=== PATIENT | male | born 1940 | race Caucasian/White ===

== ENCOUNTER 2019-08-31 04:50 | Emergency (ER) | payer OTHER ==
--- NOTE | 2019-08-31 05:24 | EDM.PDOC ---
ED HPI GENERAL MEDICAL PROBLEM - General Chief Complaint: General Stated Complaint: SOB Time Seen by Provider: 08/31/19 05:24 Source of Information: Reports: Patient, Old Records History Limitations: Reports: No Limitations - History of Present Illness INITIAL COMMENTS - FREE TEXT/NARRATIVE: Abisai was discharged from [facility] this past Saturday. States things were going well with no major issues until awakening this morning. Significant dizziness/vertigo has been experienced since then. Seemingly worsens with any position change or motion of the head. He denies any recent falls, no head trauma, with mild fluid concerns as he states he is always been on the dry side. Due to the medications he is thirsty. States he must watch how much he drinks in general. Breathing concerns are chronic in nature with his COPD and history of non-small cell lung cancer which has been successfully placed into remission, with oncology treatments,radiation & Keytruda. He denies any chest pain or chest pressure, not aware of any change in his underlying atrial fibrillation. Onset: Today Duration: Hour(s): Location: Reports: Head Severity: Severe Improves with: Reports: None Worsens with: Reports: Movement Context: Reports: Other Associated Symptoms: Reports: Other (Chronic back pain) - Related Data Allergies Allergy/AdvReac Type Severity Reaction Status Date / Time No Known Drug Allergies Allergy Other Verified 08/31/19 05:03 Home Meds: Home Meds Aspirin [Aspirin EC] 325 mg PO DAILY 08/31/19 [History] Baclofen 5 mg PO BID 08/31/19 [History] Bumetanide [Bumex] 2 mg PO BID 08/31/19 [History] Celecoxib [CeleBREX] 200 mg PO DAILY 08/31/19 [History] Cholecalciferol (Vitamin D3) [Vitamin D3] 1,000 unit PO DAILY 08/31/19 [History] ClonazePAM [KlonoPIN] 0.25 mg PO BID 08/31/19 [History] Dabigatran [Pradaxa] 150 mg PO BID 08/31/19 [History] Lidocaine 1 patch TOP DAILY 08/31/19 [History] Meclizine HCl [Dramamine Less Drowsy] 25 mg PO TID #60 tablet 08/31/19 [Rx] Omeprazole 20 mg PO DAILY 08/31/19 [History] Pravastatin [Pravachol] 80 mg PO BEDTIME 08/31/19 [History] Pregabalin [Lyrica] 100 mg PO DAILY 08/31/19 [History] Providone- Iodine Swab 1 swab TOP DAILY 08/31/19 [History] Psyllium Husk [Psyllium Fiber] 0.52 gm PO DAILY 08/31/19 [History] Tamsulosin [Flomax] 0.4 mg PO BEDTIME 08/31/19 [History] Verapamil [Verapamil ER] 240 mg PO DAILY 08/31/19 [History] Vit A/Vit C/Vit E/Zinc/Copper [Preservision] 1 each PO BID 08/31/19 [History] fentaNYL [Fentanyl] 1 patch TOP Q72H 08/31/19 [History] polyethylene glycoL 3350 [MiraLAX] 17 gm PO DAILY 08/31/19 [History] Past Medical History HEENT History: Reports: Cataract (Bilateral removal with implant), Impaired Vision (Farsighted using a reading machine), Macular Degeneration Cardiovascular History: Reports: Afib, High Cholesterol, Hypertension Respiratory History: Reports: COPD, Other (See Below) (Non-small cell lung cancer) Gastrointestinal History: Reports: Bowel Obstruction Genitourinary History: Reports: BPH Musculoskeletal History: Reports: Back Pain, Chronic, Other (See Below) ( Osteomyelitis L4/L5) Neurological History: Reports: Vertigo Psychiatric History: Reports: None Endocrine/Metabolic History: Reports: None Hematologic History: Reports: None Immunologic History: Reports: None Oncologic (Cancer) History: Reports: Lung (Non-small cell) Dermatologic History: Reports: None - Past Surgical History HEENT Surgical History: Reports: Cataract Surgery ( x2) Cardiovascular Surgical History: Reports: None Respiratory Surgical History: Reports: Lung Biopsies GI Surgical History: Reports: Hernia, Inguinal (left 05/06/2019) - Past Imaging History Past Imaging History: Reports: Cardiac Echo, CAT Scan, MRI, Upper GI X-Ray/ Series Social & Family History - Family History Family Medical History: Noncontributory - Tobacco Use Smoking Status *Q: Current Every Day Smoker Tobacco Use Within Last Twelve Months: Cigarettes ED ROS GENERAL - Review of Systems Review Of Systems: See Below Constitutional: Reports: No Symptoms HEENT: Reports: Vertigo Respiratory: Reports: Shortness of Breath (Chronic) Cardiovascular: Reports: Edema (Chronic, with significant improvement from preadmission) Endocrine: Reports: No Symptoms GI/Abdominal: Reports: No Symptoms : Reports: No Symptoms Musculoskeletal: Reports: Back Pain Skin: Reports: Other (Chronic healing areas to the legs from previous significant weeping edema) Neurological: Reports: Dizziness, Other Psychiatric: Reports: No Symptoms Hematologic/Lymphatic: Reports: No Symptoms Immunologic: Reports: No Symptoms ED EXAM, GENERAL - Physical Exam Exam: See Below Exam Limited By: No Limitations General Appearance: Alert, WD/WN, No Apparent Distress Ears: Normal External Exam, Normal Canal, Hearing Grossly Normal, Normal TMs ( Significant ceruminosis with impaction bilateral, unable to visualize membranes) Ear Exam: Bilateral Ear: Auricle Normal, Canal Normal Nose: Normal Inspection, Normal Mucosa, No Blood Throat/Mouth: Normal Inspection, Normal Lips, Normal Oropharynx, Normal Voice Head: Atraumatic, Normocephalic Neck: Normal Inspection, Supple, Non-Tender Respiratory/Chest: No Respiratory Distress, Lungs Clear, Normal Breath Sounds ( Mildly diminished right side), No Accessory Muscle Use, Chest Non-Tender Cardiovascular: Normal Peripheral Pulses, Irregularly Irregular. No: No Edema ( +2 bilateral healed skin excoriations that appear to have a Betadine-type prep) GI/Abdominal: Normal Bowel Sounds, Soft, Non-Tender, No Organomegaly, No Distention (Scars of previous surgeries well-healed no evidence of infection) (Male) Exam: Deferred Rectal (Males) Exam: Deferred Back Exam: Normal Inspection, Full Range of Motion Extremities: Pedal Edema (S2 with chronic skin excoriations appearing healed with a Betadine tincture appearance to skin), Other (No noted deficits to motion or strength.) Neurological: Alert, Oriented, CN II-XII Intact, Normal Cognition, No Motor/ Sensory Deficits Psychiatric: Normal Affect, Normal Mood Skin Exam: Warm, Dry, Intact, Normal Color, No Rash Lymphatic: No Adenopathy Course - Vital Signs Last Recorded V/S: Last Vital Signs Temp 35.9 C L 08/31/19 04:55 Pulse 96 08/31/19 08:15 Resp 18 08/31/19 07:00 BP 123/71 08/31/19 08:15 Pulse Ox 93 L 08/31/19 08:15 - Orders/Labs/Meds Orders: Active Orders 24 hr Category Date Time Status EKG Documentation Completion [RC] ASDIRECTED Care 08/31/19 05:50 Ordered Peripheral IV Care [RC] . DIRECTED Care 08/31/19 07:58 Ordered PT Evaluation and Treatment [CONS] Routine Cons 08/31/19 08:37 Ordered CULTURE BLOOD [BC] Stat Lab 08/31/19 05:49 Ordered CULTURE URINE [RM] Stat Lab 08/31/19 06:45 Received Sodium Chloride 0.9% [Saline Flush] Med 08/31/19 07:58 Ordered 10 ml FLUSH Q8HR PRN Peripheral IV Insertion Adult [OM.PC] Routine Oth 08/31/19 07:58 Ordered Medication Orders Sodium Chloride (Saline Flush) 10 ml FLUSH Q8HR PRN PRN Reason: keep vein open Labs: Laboratory Tests 08/31/19 08/31/19 08/31/19 Range/Units 06:22 06:22 06:22 WBC 6.05 (5.00-10.00) 10^3/uL RBC 4.44 L (4.50-6.00) 10^6/uL Hgb 10.5 L (13.0-17.0) g/dL Hct 32.8 L (40.0-52.0) % MCV 73.9 L (82.0-92.0) fL MCH 23.6 L (27.0-31.0) pg MCHC 32.0 (32.0-36.0) g/dL RDW 25.4 H (11.5-14.5) % Plt Count 248 (150-400) 10^3/uL MPV 9.9 (7.4-10.4) fL Immature Gran % (Auto) 0.2 (0.0-5.0) % Neut % (Auto) 74.3 H (50.0-70.0) % Lymph % (Auto) 12.4 L (20.0-40.0) % Barber % (Auto) 12.6 H (2.0-8.0) % Eos % (Auto) 0.0 L (1.0-3.0) % Baso % (Auto) 0.5 (0.0-1.0) % Neut # (Auto) 4.50 (2.50-7.00) 10^3/uL Lymph # (Auto) 0.75 L (1.00-4.00) 10^3/uL Barber # (Auto) 0.76 (0.10-0.80) 10^3/uL Eos # (Auto) 0.00 L (0.10-0.30) 10^3/uL Baso # (Auto) 0.03 (0.00-0.10) 10^3/uL Immature Gran # (Auto) 0.01 (0.00-0.50) 10^3/uL Polychromasia Occasional Target Cells 1+ slight Schistocytes Occasional Sodium 145 (136-145) mmol/L Potassium 2.9 L (3.3-5.3) mmol/L Chloride 103 (98-115) mmol/L Carbon Dioxide 31.0 (21.0-32.0) mmol/L Anion Gap 13.9 (5-15) mmol/L BUN 21 (6-25) mg/dL Creatinine 1.01 (0.51-1.17) mg/dL Est Cr Clr Drug Dosing 54.39 mL/min Estimated GFR (MDRD) > 60 mL/min Glucose 115 H (75 - 99) mg/dL Lactic Acid 1.3 (0.4-2.0) mmol/L Calcium 8.7 (8.7-10.3) mg/dL Total Bilirubin 0.7 (0.2-1.0) mg/dL AST 23 (15-37) U/L ALT 28 (12-78) U/L Alkaline Phosphatase 93 (46-116) IU/L Troponin I < 0.04 (0.00-0.070) ng/mL B-Natriuretic Peptide 268 H (0-100) pg/mL Total Protein 7.0 (6.4-8.2) g/dL Albumin 3.38 (3.00-4.80) g/dL Specimen Type Urine Color (YELLOW) Urine Appearance (CLEAR) Urine pH (5.0-9.0) Ur Specific [place] (1.005-1.030) Urine Protein (NEGATIVE) mg/dL Urine Glucose (UA) (NEGATIVE) mg/dL Urine Ketones (NEGATIVE) mg/dL Urine Occult Blood (NEGATIVE) Urine Nitrite (NEGATIVE) Urine Bilirubin (NEGATIVE) Urine Urobilinogen (0.2-1.0) E.U./dL Ur Leukocyte Esterase (NEGATIVE) Urine RBC (0-5) /HPF Urine WBC (0-5) /HPF Ur Epithelial Cells /LPF Urine Bacteria (NONE TO FEW) /HPF Urine Mucus (NEGATIVE) /LPF 08/31/19 Range/Units 06:45 WBC (5.00-10.00) 10^3/uL RBC (4.50-6.00) 10^6/uL Hgb (13.0-17.0) g/dL Hct (40.0-52.0) % MCV (82.0-92.0) fL MCH (27.0-31.0) pg MCHC (32.0-36.0) g/dL RDW (11.5-14.5) % Plt Count (150-400) 10^3/uL MPV (7.4-10.4) fL Immature Gran % (Auto) (0.0-5.0) % Neut % (Auto) (50.0-70.0) % Lymph % (Auto) (20.0-40.0) % Barber % (Auto) (2.0-8.0) % Eos % (Auto) (1.0-3.0) % Baso % (Auto) (0.0-1.0) % Neut # (Auto) (2.50-7.00) 10^3/uL Lymph # (Auto) (1.00-4.00) 10^3/uL Barber # (Auto) (0.10-0.80) 10^3/uL Eos # (Auto) (0.10-0.30) 10^3/uL Baso # (Auto) (0.00-0.10) 10^3/uL Immature Gran # (Auto) (0.00-0.50) 10^3/uL Polychromasia Target Cells Schistocytes Sodium (136-145) mmol/L Potassium (3.3-5.3) mmol/L Chloride (98-115) mmol/L Carbon Dioxide (21.0-32.0) mmol/L Anion Gap (5-15) mmol/L BUN (6-25) mg/dL Creatinine (0.51-1.17) mg/dL Est Cr Clr Drug Dosing mL/min Estimated GFR (MDRD) mL/min Glucose (75 - 99) mg/dL Lactic Acid (0.4-2.0) mmol/L Calcium (8.7-10.3) mg/dL Total Bilirubin (0.2-1.0) mg/dL AST (15-37) U/L ALT (12-78) U/L Alkaline Phosphatase (46-116) IU/L Troponin I (0.00-0.070) ng/mL B-Natriuretic Peptide (0-100) pg/mL Total Protein (6.4-8.2) g/dL Albumin (3.00-4.80) g/dL Specimen Type Urincc Urine Color Yellow (YELLOW) Urine Appearance Clear (CLEAR) Urine pH 7.0 (5.0-9.0) Ur Specific [place] 1.015 (1.005-1.030) Urine Protein Negative (NEGATIVE) mg/dL Urine Glucose (UA) Negative (NEGATIVE) mg/dL Urine Ketones Negative (NEGATIVE) mg/dL Urine Occult Blood Trace-intact H (NEGATIVE) Urine Nitrite Negative (NEGATIVE) Urine Bilirubin Negative (NEGATIVE) Urine Urobilinogen 0.2 (0.2-1.0) E.U./dL Ur Leukocyte Esterase Trace H (NEGATIVE) Urine RBC 5-10 H (0-5) /HPF Urine WBC 5-10 H (0-5) /HPF Ur Epithelial Cells Few /LPF Urine Bacteria Few (NONE TO FEW) /HPF Urine Mucus Few H (NEGATIVE) /LPF Meds: Medications Generic Name Dose Route Start Last Admin Trade Name Freq PRN Reason Stop Dose Admin Sodium Chloride 10 ml 08/31/19 07:58 Saline Flush FLUSH Q8HR PRN keep vein open Discontinued Medications Generic Name Dose Route Start Last Admin Trade Name Freq PRN Reason Stop Dose Admin Carbamide Perox/Anhydrous Glycerin 1 ml 08/31/19 05:44 08/31/19 07:00 Debrox 6.5% Otic Soln EARBOTH 08/31/19 05:45 3 drop ONETIME ONE Administration Carbamide Perox/Anhydrous Glycerin Confirm 08/31/19 05:44 08/31/19 08:07 Debrox 6.5% Otic Soln Administered 08/31/19 05:45 Not Given Dose 15 ml .ROUTE .STK-MED ONE Potassium Chloride 20 meq/ 100 mls @ 50 mls/hr 08/31/19 07:59 08/31/19 08:14 Premix IV 08/31/19 09:58 50 mls/hr ONETIME ONE Administration - Radiology Interpretation Free Text/Narrative:: Chest x-ray, 1 view, no evidence of cardiomegaly, no acute cardiopulmonary abnormalities. Mild pulmonary hyperinflation consistent with COPD history. - Re-Assessments/Exams Free Text/Narrative Re-Assessment/Exam: 08/31/19 05:25 Mildly positive bilateral Nylen Barany test with extreme dizziness provoked with any sudden turning of his head and neck in a seated position. Through the course of his stay this is slightly improved denying any headache changes from his intermittent chronic headaches. We discussed his potassium level today, to which he laughs stating how he had been overtreated in the past and then has been on no potassium supplement, despite continuing diuretic therapy. 08/31/19 09:09 Free Text/Narrative Re-Assessment/Exam: 08/31/19 09:23 Noted improvement, slight with physical therapy evaluation and treatment. Is anxious to be discharged home at this time. We will again attempted irrigation of the ceruminosis are to discharge. Abisai asks that I call his friend to pick him up. The emergency department for transport home. We do discuss that he will need potassium supplementation, to which she replies he has 20 mEq tablets in her possession. This was what he had previously taken but admitted been stopped during his time of residency in [place]. Prefers [facility] and [facility] for the prescription meclizine Free Text/Narrative Re-Assessment/Exam: 08/31/19 10:00 Noted mild improvement and vestibular dysfunction. Irrigation of the canals removed cerumen impaction with mild irritation of the canals noted. IV potassium infusing to conclusion of the 20 mEq dose with plan for discharge upon completion. Departure - Departure Time of Disposition: 10:50 Disposition: Home, Self-Care 01 Condition: Fair Clinical Impression: Benign paroxysmal positional vertigo, Hypokalemia due to excessive renal loss of potassium, Anemia - Discharge Information *PRESCRIPTION DRUG MONITORING PROGRAM REVIEWED*: Not Applicable *COPY OF PRESCRIPTION DRUG MONITORING REPORT IN PATIENT VIDAL: Not Applicable Prescriptions: Meclizine HCl [Dramamine Less Drowsy] 25 mg PO TID #60 tablet Instructions: Benign Positional Vertigo, Potassium Content of Foods Forms: ED Department Discharge Additional Instructions: You will take the 20 mEq potassium pills that you had previously been prescribed. 1 daily with food. A new medicine called meclizine has been ordered for you. 25 mg once every 8 hours as needed for dizziness. It may be beneficial to take this 3 times daily for at least the first 2-3 days to try to get your dizziness under control. Continue all of your other medications as previously ordered, as we have made no changes to them. Contact the [facility] facility in [place] to assure that the transfer of care from [place] has been completed. U also need to get a recheck appointment for your potassium and anemia levels in the upcoming week to 2 week time span. Continue with the home vestibular exercises to help control the dizziness that jorge l the physical therapist demonstrated with you. Use your walker for safety with the dizziness. This will help so you don't fall. Call or return if considerations occur prior to being able to be evaluated through the [facility]. Sepsis Event Note - Evaluation Sepsis Screening Result: No Definite Risk - Focused Exam Vital Signs: Vital Signs Temp Pulse Resp BP BP Pulse Ox 08/31/19 08:15 96 123/71 93 L 08/31/19 07:00 88 18 123/74 96 08/31/19 06:00 83 20 117/22 L 94 L 08/31/19 04:55 35.9 C L 104 H 20 138/55 L 96 Date Exam was Performed: 08/31/19 Time Exam was Performed: 10:09 - Problem List & Annotations (1) Benign paroxysmal positional vertigo SNOMED Code(s): 080151989 Code(s): H81.10 - BENIGN PAROXYSMAL VERTIGO, UNSPECIFIED EAR Status: Acute Priority: High Qualifiers: Laterality: bilateral Qualified Code(s): H81.13 - Benign paroxysmal vertigo , bilateral (2) Impacted cerumen of both ears SNOMED Code(s): 87186756 Code(s): H61.23 - IMPACTED CERUMEN, BILATERAL Status: Chronic Priority: High (3) Atrial fibrillation with controlled ventricular response SNOMED Code(s): 762031036 Code(s): I48.91 - UNSPECIFIED ATRIAL FIBRILLATION Status: Chronic Priority: Medium (4) Dizziness SNOMED Code(s): 420444448, 862518681 Code(s): R42 - DIZZINESS AND GIDDINESS Status: Acute Priority: High (5) Hypokalemia due to excessive renal loss of potassium SNOMED Code(s): 30610266 Code(s): E87.6 - HYPOKALEMIA Status: Acute Priority: Medium Annotation/ Comment:: Prior history hypokalemia treated with oral leading to hyperkalemia. Supplements stopped at that time. (6) Anemia SNOMED Code(s): 226666748 Code(s): D64.9 - ANEMIA, UNSPECIFIED Status: Chronic Priority: Medium Qualifiers: Anemia type: other cause Other causes of anemia: other cause, not classified Qualified Code(s): D64.89 - Other specified anemias (7) Chronic pain disorder SNOMED Code(s): 257792218 Code(s): G89.4 - CHRONIC PAIN SYNDROME Status: Chronic Priority: Medium Annotation/Comment:: Low back - Problem List Review Problem List Initiated/Reviewed/Updated: Yes - My Orders Last 24 Hours: My Active Orders 08/31/19 05:49 CULTURE BLOOD [BC] Stat 08/31/19 05:50 EKG Documentation Completion [RC] ASDIRECTED 08/31/19 06:45 CULTURE URINE [RM] Stat 08/31/19 07:58 Peripheral IV Care [RC] . DIRECTED Sodium Chloride 0.9% [Saline Flush] 10 ml FLUSH Q8HR PRN Peripheral IV Insertion Adult [OM.PC] Routine 08/31/19 08:37 PT Evaluation and Treatment [CONS] Routine - Assessment/Plan Last 24 Hours: My Active Orders 08/31/19 05:49 CULTURE BLOOD [BC] Stat 08/31/19 05:50 EKG Documentation Completion [RC] ASDIRECTED 08/31/19 06:45 CULTURE URINE [RM] Stat 08/31/19 07:58 Peripheral IV Care [RC] . DIRECTED Sodium Chloride 0.9% [Saline Flush] 10 ml FLUSH Q8HR PRN Peripheral IV Insertion Adult [OM.PC] Routine 08/31/19 08:37 PT Evaluation and Treatment [CONS] Routine Plan: You will take the 20 mEq potassium pills that you had previously been prescribed. 1 daily with food. A new medicine called meclizine has been ordered for you. 25 mg once every 8 hours as needed for dizziness. It may be beneficial to take this 3 times daily for at least the first 2-3 days to try to get your dizziness under control. Continue all of your other medications as previously ordered, as we have made no changes to them. Contact the [facility] facility in [place] to assure that the transfer of care from [place] has been completed. U also need to get a recheck appointment for your potassium and anemia levels in the upcoming week to 2 week time span. Continue with the home vestibular exercises to help control the dizziness that jorge l the physical therapist demonstrated with you. Use your walker for safety with the dizziness. This will help so you don't fall. Call or return if considerations occur prior to being able to be evaluated through the [facility].
[2019-08-31] MEDS ORDERED: Carbamide Peroxide 6.5% Otic Soln 15 ML Bottle ONE (05:44)
[2019-08-31] MEDS: Carbamide Peroxide 6.5% Otic Soln 15 ML Bottle EARBOTH ONE ×2 (06:08→07:00)
[2019-08-31 07:21] LABS: SODIUM,NA 145 mmol/L (136-145)
[2019-08-31 07:29] LABS: ANION GAP 13.9 mmol/L (5-15); CHLORIDE,CL 103 mmol/L (98-115)
[2019-08-31] MEDS ORDERED: Sodium Chloride 0.9% 10 ML Syringe FLUSH PRN (07:58)
[2019-08-31] MEDS ORDERED: Potassium Chloride 20 MEQ in Premix Bag 1 BAG IV ONE (07:59)
--- NOTE | 2019-08-31 08:00 | CR ---
[id number] RAD/RAD Chest PA or AP 1V EXAM: RAD Chest PA or AP 1V INDICATION: ATRIAL FIBRILLATION, DIZZINESS. COMPARISON: May 25, 2019. DISCUSSION: Cardiomediastinal silhouette is normal in size and contour. No infiltrate, effusion, pneumothorax, or edema. Pulmonary hyperinflation. IMPRESSION: No acute cardiopulmonary abnormality. Richard Sampson DO 08/31/19 0759 Thank you for allowing us to participate in the care of your patient.
== END 2019-08-31 10:50 | disposition home or self-care (01) ==
LOC: KA.ED 04:50
DX: H81.10 Benign paroxysmal vertigo, unspecified ear (principal); H61.23 Impacted cerumen, bilateral; E87.6 Hypokalemia; D64.9 Anemia, unspecified
CPT/HCPCS: 36415; 69209; 71045; 80053; 81001; 83605; 83880; 84484; 85025; 87040; 87086; 93005; 96365; 96366; 99284; 99285; J3480

== ENCOUNTER 2019-09-06 20:32 | Emergency (ER) | payer OTHER ==
[2019-09-06 21:05] LABS: ANION GAP 14.2 mmol/L (5-15); CHLORIDE,CL 96 mmol/L (98-115); SODIUM,NA 138 mmol/L (136-145)
--- NOTE | 2019-09-06 21:35 | EDM.PDOC ---
ED HPI GENERAL MEDICAL PROBLEM - General Chief Complaint: General Stated Complaint: Dizziness Time Seen by Provider: 09/06/19 21:06 Source of Information: Reports: Patient History Limitations: Reports: No Limitations - History of Present Illness INITIAL COMMENTS - FREE TEXT/NARRATIVE: Patient presents with vertigo that started 3-4 hours ago. It is worse with head movement. No vision change or nausea. He had similar symptoms, but a little worse, 6 days ago and was evaluated in ER also. He was given Meclizine Rx and he took one about 5 hours ago tonight. Otherwise the vertigo hasn't been bothering him the past few days. It does make it more difficult to walk, especially the one last week. Headache Pain Score (Numeric/FACES): 5 - Related Data Allergies Allergy/AdvReac Type Severity Reaction Status Date / Time No Known Drug Allergies Allergy Other Verified 09/06/19 21:11 Home Meds: Home Meds Aspirin [Aspirin EC] 325 mg PO DAILY 08/31/19 [History] Baclofen 5 mg PO BID 08/31/19 [History] Bumetanide [Bumex] 2 mg PO BID 08/31/19 [History] Cholecalciferol (Vitamin D3) [Vitamin D3] 1,000 unit PO DAILY 08/31/19 [History] ClonazePAM [KlonoPIN] 0.25 mg PO BID 08/31/19 [History] Dabigatran [Pradaxa] 150 mg PO BID 08/31/19 [History] Lidocaine 1 patch TOP DAILY 08/31/19 [History] Meclizine HCl [Dramamine Less Drowsy] 25 mg PO TID #60 tablet 08/31/19 [Rx] Omeprazole 20 mg PO DAILY 08/31/19 [History] Pravastatin [Pravachol] 80 mg PO BEDTIME 08/31/19 [History] Pregabalin [Lyrica] 100 mg PO DAILY 08/31/19 [History] Providone- Iodine Swab 1 swab TOP DAILY 08/31/19 [History] Psyllium Husk [Psyllium Fiber] 0.52 gm PO DAILY 08/31/19 [History] Tamsulosin [Flomax] 0.4 mg PO BEDTIME 08/31/19 [History] Verapamil [Verapamil ER] 240 mg PO DAILY 08/31/19 [History] Vit A/Vit C/Vit E/Zinc/Copper [Preservision] 1 each PO BID 08/31/19 [History] fentaNYL [Fentanyl] 1 patch TOP Q72H 08/31/19 [History] polyethylene glycoL 3350 [MiraLAX] 17 gm PO DAILY 08/31/19 [History] L Acidophil/B Lactis/B Longum [Florajen3] 1 cap PO DAILY 09/06/19 [History] Potassium Chloride [Klor-Con M20] 20 meq PO DAILY 09/06/19 [History] Past Medical History HEENT History: Reports: Cataract (Bilateral removal with implant), Impaired Vision (Farsighted using a reading machine), Macular Degeneration Cardiovascular History: Reports: Afib, High Cholesterol, Hypertension Respiratory History: Reports: COPD, Other (See Below) (Non-small cell lung cancer) Other Respiratory History: Lung Cancer Gastrointestinal History: Reports: Bowel Obstruction Genitourinary History: Reports: BPH Musculoskeletal History: Reports: Back Pain, Chronic, Other (See Below) ( Osteomyelitis L4/L5) Other Musculoskeletal History: Osteomyelitis Neurological History: Reports: Vertigo Psychiatric History: Reports: None Endocrine/Metabolic History: Reports: None Hematologic History: Reports: None Immunologic History: Reports: None Oncologic (Cancer) History: Reports: Lung (Non-small cell) Dermatologic History: Reports: None - Past Surgical History HEENT Surgical History: Reports: Cataract Surgery ( x2) Cardiovascular Surgical History: Reports: None Respiratory Surgical History: Reports: Lung Biopsies GI Surgical History: Reports: Hernia, Inguinal (left 05/06/2019) - Past Imaging History Past Imaging History: Reports: Cardiac Echo, CAT Scan, MRI, Upper GI X-Ray/ Series Social & Family History - Family History Family Medical History: Noncontributory - Tobacco Use Smoking Status *Q: Current Every Day Smoker Years of Tobacco use: 60 Packs/Tins Daily: 0.5 - Recreational Drug Use Recreational Drug Use: No ED ROS GENERAL - Review of Systems Review Of Systems: See Below Constitutional: Denies: Fever, Chills, Malaise, Weakness HEENT: Reports: Vertigo. Denies: Ear Discharge (does have cerumen buildup frequently), Ear Pain, Throat Pain, Vision Change Respiratory: Denies: Shortness of Breath, Cough Cardiovascular: Reports: Lightheadedness (a little when he stands but mostly the vertigo). Denies: Chest Pain GI/Abdominal: Denies: Abdominal Pain, Diarrhea, Nausea, Vomiting : Denies: Dysuria, Flank Pain Musculoskeletal: Reports: No Symptoms Skin: Denies: Cyanosis, Jaundice, Mottled, Pallor, Diaphoresis Neurological: Reports: Headache. Denies: Confusion, Dizziness, Seizure, Syncope Psychiatric: Denies: Agitation, Anxiety, Confusion ED EXAM, GENERAL - Physical Exam Exam: See Below Exam Limited By: No Limitations General Appearance: Alert, WD/WN, No Apparent Distress Eye Exam: Bilateral Eye: EOMI, Normal Inspection, PERRL Ears: Normal External Exam, Other (bilat cerumen) Nose: Normal Inspection, No Blood Throat/Mouth: Normal Inspection, Normal Voice, No Airway Compromise Head: Atraumatic, Normocephalic Neck: Normal Inspection, Full Range of Motion Respiratory/Chest: No Respiratory Distress, Lungs Clear, Normal Breath Sounds, No Accessory Muscle Use Cardiovascular: Irregularly Irregular (slightly irregular with normal rate) GI/Abdominal: Normal Bowel Sounds, Soft, Non-Tender, No Organomegaly, No Distention Back Exam: Normal Inspection, Full Range of Motion. No: CVA Tenderness (L), CVA Tenderness (R) Extremities: Normal Inspection, Normal Range of Motion Neurological: Alert, Oriented, Normal Cognition, No Motor/Sensory Deficits, Other (Sofya Varg[place] was positive for vertigo to the right greater than to the left with no observed nystagmus bilat.) Psychiatric: Normal Affect, Normal Mood Skin Exam: Warm, Dry, Intact, Normal Color, No Rash Course - Vital Signs Last Recorded V/S: Last Vital Signs Temp 97 F 09/06/19 21:12 Pulse 98 09/06/19 21:12 Resp 20 09/06/19 21:12 BP 138/56 L 09/06/19 21:12 Pulse Ox 98 09/06/19 21:12 - Orders/Labs/Meds Orders: Active Orders 24 hr Category Date Time Status EKG Documentation Completion [RC] ASDIRECTED Care 09/06/19 20:40 Active Head wo Cont [CT] Stat Exams 09/06/19 21:27 Ordered Sodium Chloride 0.9% @ 999 MLS/HR (1000ml) Med 09/06/19 21:44 Ordered Sodium Chloride 0.9% [Normal Saline] 1,000 ml IV .BOLUS EKG 12 Lead [EK] Stat Ther 09/06/19 20:39 Ordered Medication Orders Sodium Chloride (Normal Saline) 1,000 mls @ 999 mls/hr IV .BOLUS ONE Stop: 09/06/19 22:44 Last Admin: 09/06/19 21:55 Dose: 999 mls/hr Labs: Laboratory Tests 09/06/19 09/06/19 Range/Units 20:35 20:35 WBC 6.34 (5.00-10.00) 10^3/uL RBC 4.52 (4.50-6.00) 10^6/uL Hgb 10.6 L (13.0-17.0) g/dL Hct 33.2 L (40.0-52.0) % MCV 73.5 L (82.0-92.0) fL MCH 23.5 L (27.0-31.0) pg MCHC 31.9 L (32.0-36.0) g/dL RDW 24.8 H (11.5-14.5) % Plt Count 258 (150-400) 10^3/uL MPV 10.1 (7.4-10.4) fL Immature Gran % (Auto) 0.0 (0.0-5.0) % Neut % (Auto) 68.1 (50.0-70.0) % Lymph % (Auto) 16.9 L (20.0-40.0) % [place] % (Auto) 14.5 H (2.0-8.0) % Eos % (Auto) 0.0 L (1.0-3.0) % Baso % (Auto) 0.5 (0.0-1.0) % Neut # (Auto) 4.32 (2.50-7.00) 10^3/uL Lymph # (Auto) 1.07 (1.00-4.00) 10^3/uL [place] # (Auto) 0.92 H (0.10-0.80) 10^3/uL Eos # (Auto) 0.00 L (0.10-0.30) 10^3/uL Baso # (Auto) 0.03 (0.00-0.10) 10^3/uL Immature Gran # (Auto) 0.00 (0.00-0.50) 10^3/uL Anisocytosis 1+ slight Microcytosis 1+ slight Sodium 138 (136-145) mmol/L Potassium 2.9 L (3.3-5.3) mmol/L Chloride 96 L (98-115) mmol/L Carbon Dioxide 30.7 (21.0-32.0) mmol/L Anion Gap 14.2 (5-15) mmol/L BUN 29 H (6-25) mg/dL Creatinine 1.21 H (0.51-1.17) mg/dL Est Cr Clr Drug Dosing TNP Estimated GFR (MDRD) 58 mL/min Glucose 120 H (75 - 99) mg/dL Calcium 8.7 (8.7-10.3) mg/dL Meds: Medications Generic Name Dose Route Start Last Admin Trade Name Freq PRN Reason Stop Dose Admin Sodium Chloride 1,000 mls @ 999 mls/hr 09/06/19 21:44 09/06/19 21:55 Normal Saline IV 09/06/19 22:44 999 mls/hr .BOLUS ONE Administration Discontinued Medications Generic Name Dose Route Start Last Admin Trade Name Freq PRN Reason Stop Dose Admin Potassium Chloride/Sodium Chloride 1,000 mls @ 1,000 mls/hr 09/06/19 21:45 Normal Saline With 40 Meq Kcl IV ASDIRECTED PHOEBE Potassium Chloride 40 meq 09/06/19 21:44 09/06/19 21:59 Klor-Con M20 PO 09/06/19 21:45 40 meq ONETIME ONE Administration - Re-Assessments/Exams Free Text/Narrative Re-Assessment/Exam: 09/06/19 22:21 BUN, 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 Head CT shows no acute abnormalities. Patient has been sleeping some in ER now. 09/06/19 22:42 Discussed findings and treatment plan with patient. He is feeling much better now. He doesn't want any Meclizine now but has it at home if needed. We discussed that [facility] and to address his need for chronic potassium supplementation which had been stopped. He also would benefit by seeing PT for Roseanne Maneuver, most likely. Discharged to home in stable condition. Departure - Departure Time of Disposition: 22:35 Disposition: Home, Self-Care 01 Condition: Good Clinical Impression: Vertigo, Hypokalemia, On potassium wasting diuretic therapy - Discharge Information Forms: ED Department Discharge Additional Instructions: 1. See your PCP in 2-3 days for recheck and to discuss potassium supplementation. 2. See Physical Therapy for Roseanne Maneuver to treat the vertigo. 3. Use your Meclizine as directed when needed for vertigo. Sepsis Event Note - Evaluation Sepsis Screening Result: No Definite Risk - Focused Exam Vital Signs: Vital Signs Temp Pulse Resp BP Pulse Ox 09/06/19 21:12 97 F 98 20 138/56 L 98 Date Exam was Performed: 09/06/19 Time Exam was Performed: :21 - My Orders Last 24 Hours: My Active Orders 09/06/19 20:39 EKG 12 Lead [EK] Stat 09/06/19 20:40 EKG Documentation Completion [RC] ASDIRECTED 09/06/19 21:27 Head wo Cont [CT] Stat 09/06/19 21:44 Sodium Chloride 0.9% @ 999 MLS/HR (1000ml) Sodium Chloride 0.9% [Normal Saline] 1,000 ml IV .BOLUS - Assessment/Plan Last 24 Hours: My Active Orders 09/06/19 20:39 EKG 12 Lead [EK] Stat 09/06/19 20:40 EKG Documentation Completion [RC] ASDIRECTED 09/06/19 21:27 Head wo Cont [CT] Stat 09/06/19 21:44 Sodium Chloride 0.9% @ 999 MLS/HR (1000ml) Sodium Chloride 0.9% [Normal Saline] 1,000 ml IV .BOLUS
[2019-09-06] MEDS ORDERED: Sodium Chloride 0.9% with KCl 1,000 ML IV SCH (21:45)
[2019-09-06] MEDS: Sodium Chloride 0.9% 1,000 ML IV ONE (21:55)
[2019-09-06] MEDS: Potassium Chloride 20 MEQ Tab.ER PO ONE (21:59)
--- NOTE | 2019-09-07 07:56 | CT ---
[id number] CT/CT Head WO IV EXAM: CT Head WO IV CLINICAL DATA: VERTIGO COMPARISON: CORRELATION IS MADE WITH MAY 25, 2019 FINDINGS: There is no mass or mass effect. A left external auditory canal mass is seen likely cerumen There is no hemorrhage or hydrocephalus. There are no extra-axial fluid collections. There are no sites of abnormal attenuation. IMPRESSION: NO PLAIN CT EVIDENCE OF ACUTE INTRACRANIAL PROCESS. Charli Byrd MD 09/07/19 0754 Thank you for allowing us to participate in the care of your patient.
== END 2019-09-06 23:10 | disposition home or self-care (01) ==
LOC: KA.ED 20:32
DX: R42 Dizziness and giddiness (principal); E87.6 Hypokalemia; J44.9 Chronic obstructive pulmonary disease, unspecified; I10 Essential (primary) hypertension; E78.00 Pure hypercholesterolemia, unspecified; I48.91 Unspecified atrial fibrillation; N40.0 Benign prostatic hyperplasia without lower urinary tract symptoms; F17.210 Nicotine dependence, cigarettes, uncomplicated; Z79.899 Other long term (current) drug therapy; Z79.82 Long term (current) use of aspirin
CPT/HCPCS: 70450; 80048; 85025; 93005; 96360; 99284; 99284-25; A9270-GY; J7030

== ENCOUNTER 2019-09-08 12:00 | Emergency (ER) | payer OTHER ==
[2019-09-08 12:42] LABS: ANION GAP 14.7 mmol/L (5-15); CHLORIDE,CL 99 mmol/L (98-115); SODIUM,NA 140 mmol/L (136-145)
--- NOTE | 2019-09-08 12:47 | EDM.PDOC ---
ED HPI GENERAL MEDICAL PROBLEM - General Chief Complaint: Headache Stated Complaint: HEADACHE Time Seen by Provider: 09/08/19 12:36 Source of Information: Reports: Patient History Limitations: Reports: No Limitations - History of Present Illness INITIAL COMMENTS - FREE TEXT/NARRATIVE: Patient is a 78-year-old gentleman who presents to the emergency department via private vehicle this morning with a complaint of headache. Patient was seen here in this ER on August 30 and again on September 05 for same complaint with dizziness. Head CAT scans were performed and were found to be negative. Patient was found to have hypokalemia and was given supplement both times. Patient was advised at that point to follow-up as he is [facility] patient. Patient states he is not having vertigo now, but still has a persistent headache. This is a condition that he has had for many months. Patient denies fever, chest pain, shortness of breath, nausea, vomiting , diarrhea, abdominal pain, any change in medication although he is not consistent with taking meds as prescribed, and consistently taking any medication for this chronic headache condition. Onset: Gradual Duration: Chronic Location: Reports: Head Quality: Reports: Ache Severity: Mild Improves with: Reports: Medication Worsens with: Reports: None Context: Denies: Activity, Trauma Associated Symptoms: Reports: Headaches. Denies: Chest Pain, Cough, cough w sputum, Diaphoresis, Fever/Chills, Nausea/Vomiting, Shortness of Breath, Syncope head Pain Score (Numeric/FACES): 6 - Related Data Allergies Allergy/AdvReac Type Severity Reaction Status Date / Time No Known Drug Allergies Allergy Other Verified 09/08/19 12:18 Home Meds: Home Meds Aspirin [Aspirin EC] 325 mg PO DAILY 08/31/19 [History] Baclofen 5 mg PO Q8HR PRN 08/31/19 [History] Bumetanide [Bumex] 2 mg PO BID 08/31/19 [History] Cholecalciferol (Vitamin D3) [Vitamin D3] 1,000 unit PO DAILY 08/31/19 [History] ClonazePAM [KlonoPIN] 0.25 mg PO BID 08/31/19 [History] Dabigatran [Pradaxa] 150 mg PO BID 08/31/19 [History] Lidocaine 1 patch TOP DAILY 08/31/19 [History] Meclizine HCl [Dramamine Less Drowsy] 25 mg PO TID #60 tablet 08/31/19 [Rx] Omeprazole 20 mg PO DAILY 08/31/19 [History] Pravastatin [Pravachol] 80 mg PO BEDTIME 08/31/19 [History] Pregabalin [Lyrica] 100 mg PO DAILY 08/31/19 [History] Providone- Iodine Swab 1 swab TOP BID 08/31/19 [History] Psyllium Husk [Psyllium Fiber] 0.52 gm PO DAILY 08/31/19 [History] Tamsulosin [Flomax] 0.4 mg PO BEDTIME 08/31/19 [History] Verapamil [Verapamil ER] 240 mg PO DAILY 08/31/19 [History] Vit A/Vit C/Vit E/Zinc/Copper [Preservision] 1 each PO BID 08/31/19 [History] fentaNYL [Fentanyl] 1 patch TOP Q72H 08/31/19 [History] polyethylene glycoL 3350 [MiraLAX] 17 gm PO DAILY 08/31/19 [History] L Acidophil/B Lactis/B Longum [Florajen3] 1 cap PO DAILY 09/06/19 [History] Potassium Chloride [Klor-Con M20] 20 meq PO DAILY 09/06/19 [History] Past Medical History HEENT History: Reports: Cataract, Impaired Vision, Macular Degeneration Cardiovascular History: Reports: Afib, High Cholesterol, Hypertension Respiratory History: Reports: COPD, Other (See Below) Other Respiratory History: Lung Cancer Gastrointestinal History: Reports: Bowel Obstruction Genitourinary History: Reports: BPH Musculoskeletal History: Reports: Back Pain, Chronic, Other (See Below) Other Musculoskeletal History: Osteomyelitis Neurological History: Reports: Vertigo Psychiatric History: Reports: None Endocrine/Metabolic History: Reports: None Hematologic History: Reports: None Immunologic History: Reports: None Oncologic (Cancer) History: Reports: Lung Dermatologic History: Reports: None - Past Surgical History HEENT Surgical History: Reports: Cataract Surgery Cardiovascular Surgical History: Reports: None Respiratory Surgical History: Reports: Lung Biopsies GI Surgical History: Reports: Hernia, Inguinal - Past Imaging History Past Imaging History: Reports: Cardiac Echo, CAT Scan, MRI, Upper GI X-Ray/ Series Social & Family History - Family History Family Medical History: Noncontributory - Tobacco Use Smoking Status *Q: Current Status Unknown ED ROS GENERAL - Review of Systems Review Of Systems: Comprehensive ROS is negative, except as noted in HPI. Constitutional: Reports: No Symptoms HEENT: Reports: Vertigo Respiratory: Reports: No Symptoms Cardiovascular: Reports: No Symptoms Endocrine: Reports: No Symptoms GI/Abdominal: Reports: No Symptoms : Reports: No Symptoms Musculoskeletal: Reports: No Symptoms Skin: Reports: No Symptoms Neurological: Reports: Dizziness, Headache. Denies: Numbness, Paresthesia, Seizure, Syncope, Tingling, Trouble Speaking, Difficulty Walking, Change in Speech, Gait Disturbance Psychiatric: Reports: No Symptoms Hematologic/Lymphatic: Reports: No Symptoms Immunologic: Reports: No Symptoms ED EXAM, GENERAL - Physical Exam Exam: See Below Exam Limited By: No Limitations General Appearance: Alert, WD/WN, No Apparent Distress Eye Exam: Right Eye: Other (Conjunctival hemorrhage at inferior and lateral border) Ears: Normal External Exam, Other (Social impaction of left ear canal. Right canal without erythema, cerumen, and TM without erythema or bulging) Ear Exam: Left Ear: Canal Normal, TM normal, Bilateral Ear: Auricle Normal Nose: Normal Inspection, Normal Mucosa, No Blood Throat/Mouth: Normal Inspection, Normal Oropharynx, No Airway Compromise Head: Atraumatic, Normocephalic Neck: Normal Inspection, Supple, Non-Tender, Full Range of Motion. No: Lymphadenopathy (L), Lymphadenopathy (R) Respiratory/Chest: No Respiratory Distress, Lungs Clear, Normal Breath Sounds, No Accessory Muscle Use, Chest Non-Tender Cardiovascular: Regular Rate, Rhythm, No Murmur GI/Abdominal: Normal Bowel Sounds, Soft, Non-Tender, No Organomegaly, No Distention, No Abnormal Bruit, No Mass Back Exam: Normal Inspection. No: CVA Tenderness (L), CVA Tenderness (R) Extremities: Normal Inspection, No Pedal Edema Neurological: Alert, Oriented, CN II-XII Intact, Normal Cognition, No Motor/ Sensory Deficits Psychiatric: Normal Affect, Normal Mood Skin Exam: Warm, Dry, Intact, Normal Color, No Rash Lymphatic: No Adenopathy Course - Vital Signs Last Recorded V/S: Last Vital Signs Temp 99.5 F 09/08/19 12:00 Pulse 98 09/08/19 12:00 Resp 18 09/08/19 12:00 BP 129/76 09/08/19 12:00 Pulse Ox 95 09/08/19 12:00 - Orders/Labs/Meds Orders: Active Orders 24 hr Category Date Time Status Peripheral IV Care [RC] . DIRECTED Care 09/08/19 13:05 Ordered Sodium Chloride 0.9% @ 999 MLS/HR (1000ml) Med 09/08/19 13:05 Ordered Sodium Chloride 0.9% [Normal Saline] 1,000 ml IV .BOLUS Sodium Chloride 0.9% [Saline Flush] Med 09/08/19 13:05 Ordered 10 ml FLUSH Q8HR PRN Peripheral IV Insertion Adult [OM.PC] Routine Oth 09/08/19 13:05 Ordered Medication Orders Sodium Chloride (Normal Saline) 1,000 mls @ 999 mls/hr IV .BOLUS ONE Stop: 09/08/19 14:05 Last Admin: 09/08/19 13:33 Dose: 999 mls/hr Sodium Chloride (Saline Flush) 10 ml FLUSH Q8HR PRN PRN Reason: keep vein open Labs: Laboratory Tests 09/08/19 09/08/19 09/08/19 Range/Units 12:10 12:10 12:10 WBC 6.26 (5.00-10.00) 10^3/uL RBC 4.59 (4.50-6.00) 10^6/uL Hgb 11.0 L (13.0-17.0) g/dL Hct 34.4 L (40.0-52.0) % MCV 74.9 L (82.0-92.0) fL MCH 24.0 L (27.0-31.0) pg MCHC 32.0 (32.0-36.0) g/dL RDW 24.7 H (11.5-14.5) % Plt Count 276 (150-400) 10^3/uL MPV 9.8 (7.4-10.4) fL Immature Gran % (Auto) 0.0 (0.0-5.0) % Neut % (Auto) 71.6 H (50.0-70.0) % Lymph % (Auto) 15.8 L (20.0-40.0) % [place] % (Auto) 12.1 H (2.0-8.0) % Eos % (Auto) 0.0 L (1.0-3.0) % Baso % (Auto) 0.5 (0.0-1.0) % Neut # (Auto) 4.48 (2.50-7.00) 10^3/uL Lymph # (Auto) 0.99 L (1.00-4.00) 10^3/uL [place] # (Auto) 0.76 (0.10-0.80) 10^3/uL Eos # (Auto) 0.00 L (0.10-0.30) 10^3/uL Baso # (Auto) 0.03 (0.00-0.10) 10^3/uL Immature Gran # (Auto) 0.00 (0.00-0.50) 10^3/uL Anisocytosis 1+ slight Microcytosis 1+ slight Sodium 140 (136-145) mmol/L Potassium 3.5 (3.3-5.3) mmol/L Chloride 99 (98-115) mmol/L Carbon Dioxide 29.8 (21.0-32.0) mmol/L Anion Gap 14.7 (5-15) mmol/L BUN 22 (6-25) mg/dL Creatinine 0.93 (0.51-1.17) mg/dL Est Cr Clr Drug Dosing TNP Estimated GFR (MDRD) > 60 mL/min Glucose 112 H (75 - 99) mg/dL Calcium 8.8 (8.7-10.3) mg/dL Total Bilirubin 0.7 (0.2-1.0) mg/dL AST 21 (15-37) U/L ALT 25 (12-78) U/L Alkaline Phosphatase 97 (46-116) IU/L B-Natriuretic Peptide 229 H (0-100) pg/mL Total Protein 7.4 (6.4-8.2) g/dL Albumin 3.64 (3.00-4.80) g/dL Meds: Medications Generic Name Dose Route Start Last Admin Trade Name Freq PRN Reason Stop Dose Admin Sodium Chloride 1,000 mls @ 999 mls/hr 09/08/19 13:05 09/08/19 13:33 Normal Saline IV 09/08/19 14:05 999 mls/hr .BOLUS ONE Administration Sodium Chloride 10 ml 09/08/19 13:05 Saline Flush FLUSH Q8HR PRN keep vein open - Re-Assessments/Exams Free Text/Narrative Re-Assessment/Exam: 09/08/19 13:39 Patient afebrile, vital signs stable, appears nontoxic, headache subsided. Discussed in length. Potassium normalized at 3.5 The [facility] he is on and his conditions. Patient recently moved to the area and previously established care at [facility]. Patient will now go to [facility]. if unable to follow-up at the [place] recommendation will be to see Dr. Nuno. 09/08/19 13:45 09/08/19 13:46 Departure - Departure Time of Disposition: 13:45 Disposition: Home, Self-Care 01 Condition: Good Clinical Impression: Migraine - Discharge Information Instructions: Recurrent Migraine Headache, [id number] Referrals: Julianna Taylor MD [Primary Care Provider] - Forms: ED Department Discharge Additional Instructions: If [facility] please make an appointment with Dr. Nuno. Return to emergency department sooner if symptoms continue or worsen. Take medication as directed Sepsis Event Note - Evaluation Sepsis Screening Result: No Definite Risk - Focused Exam Vital Signs: Vital Signs Temp Pulse Resp BP Pulse Ox 09/08/19 12:00 99.5 F 98 18 129/76 95 Date Exam was Performed: 09/08/19 Time Exam was Performed: 13:38 - My Orders Last 24 Hours: My Active Orders 09/08/19 13:05 Peripheral IV Care [RC] . DIRECTED Sodium Chloride 0.9% @ 999 MLS/HR (1000ml) Sodium Chloride 0.9% [Normal Saline] 1,000 ml IV .BOLUS Sodium Chloride 0.9% [Saline Flush] 10 ml FLUSH Q8HR PRN Peripheral IV Insertion Adult [OM.PC] Routine - Assessment/Plan Last 24 Hours: My Active Orders 09/08/19 13:05 Peripheral IV Care [RC] . DIRECTED Sodium Chloride 0.9% @ 999 MLS/HR (1000ml) Sodium Chloride 0.9% [Normal Saline] 1,000 ml IV .BOLUS Sodium Chloride 0.9% [Saline Flush] 10 ml FLUSH Q8HR PRN Peripheral IV Insertion Adult [OM.PC] Routine Assessment:: Chronic headache Plan: [place]
[2019-09-08] MEDS ORDERED: Sodium Chloride 0.9% 10 ML Syringe FLUSH PRN (13:05)
[2019-09-08] MEDS ORDERED: Sodium Chloride 0.9% 1,000 ML IV ONE (13:05)
== END 2019-09-08 14:40 | disposition home or self-care (01) ==
LOC: KA.ED 12:00
DX: G43.909 Migraine, unspecified, not intractable, without status migrainosus (principal); R42 Dizziness and giddiness; J44.9 Chronic obstructive pulmonary disease, unspecified; I10 Essential (primary) hypertension; E78.00 Pure hypercholesterolemia, unspecified; I48.91 Unspecified atrial fibrillation; N40.0 Benign prostatic hyperplasia without lower urinary tract symptoms; F17.200 Nicotine dependence, unspecified, uncomplicated; Z79.82 Long term (current) use of aspirin; Z79.899 Other long term (current) drug therapy
CPT/HCPCS: 80053; 83880; 85025; 96360; 99283; 99284; J7030; 36415

== ENCOUNTER 2021-12-19 17:35 | Observation (INO) | payer OTHER ==
[2021-12-19 18:57] LABS: ANION GAP 7.7 mmol/L (5-15)
[2021-12-19] MEDS ORDERED: Iopamidol 755 Mg/ML 100 ML Bottle IV ONE (20:34)
[2021-12-19] MEDS ORDERED: Sodium Chloride 0.9% 50 ML IV SCH (20:45)
[2021-12-19] MEDS ORDERED: MIRTAZAPINE 30 MG PO SCH (21:39)
[2021-12-19] MEDS ORDERED: Levalbuterol HCl 0.63 MG/3 ML Neb NEB SCH (21:39)
[2021-12-19] MEDS ORDERED: Tobramycin 0.3% Ophth Drops 5 ML Bottle SCH (21:39)
[2021-12-19] MEDS ORDERED: TRAZODONE HCL 100 MG PO SCH (21:39)
[2021-12-19] MEDS: Budesonide 0.5 MG/2 ML Neb **OWN MED NEB SCH (22:36)
[2021-12-19] MEDS: LEVALBUTEROL HCL 0.63 MG/3 ML NEB SCH (22:36)
[2021-12-20] MEDS ORDERED: FINASTERIDE 5 MG PO SCH (07:30)
[2021-12-20] MEDS ORDERED: METOPROLOL TARTRATE 25 MG PO SCH (08:00)
[2021-12-20] MEDS: LEVALBUTEROL HCL 0.63 MG/3 ML NEB SCH (08:46)
[2021-12-20] MEDS ORDERED: CLAVULANATE K PO SCH (09:00)
[2021-12-20] MEDS ORDERED: VERAPAMIL HCL 180 MG PO SCH (09:00)
[2021-12-20] MEDS ORDERED: BUMETANIDE 2 MG PO SCH (09:00)
[2021-12-20] MEDS ORDERED: CHOLECALCIFEROL 25 MCG PO SCH (09:00)
[2021-12-20] MEDS ORDERED: Polyethylene Glycol 3350 Powder 17 GM Packet PO SCH (09:00)
[2021-12-20] MEDS ORDERED: DABIGATRAN 150 MG PO SCH (09:00)
[2021-12-20] MEDS ORDERED: PRESERVISION PO SCH (09:00)
[2021-12-20] MEDS ORDERED: VERAPAMIL HCL 120 MG PO SCH (09:00)
[2021-12-20] MEDS ORDERED: POTASSIUM CHLORIDE 20 MEQ PO SCH (09:00)
[2021-12-20] MEDS ORDERED: ASPIRIN 81 MG PO SCH (09:00)
[2021-12-20] MEDS ORDERED: OMEPRAZOLE 20 MG PO SCH (09:00)
[2021-12-20] MEDS ORDERED: AMOXICILLIN PO SCH (09:00)
[2021-12-20] MEDS: Budesonide 0.5 MG/2 ML Neb **OWN MED NEB SCH (09:39)
[2021-12-20] MEDS ORDERED: Non-Formulary Medication 1 Each (Pravastatin Sodium 40 MG Tablet) PO SCH (18:00)
[2021-12-20] MEDS ORDERED: TAMSULOSIN 0.4 MG PO SCH (18:00)
[2021-12-20] MEDS ORDERED: SENNOSIDES 8.6 MG PO PRN (21:00)
== END 2021-12-20 13:35 ==
LOC: KA.ED 17:35 → KA.MS 20:15
PROVIDERS: ADMIT Nurse Practitioner Family; ATTEND Internal Medicine
DX: R53.1 Weakness (principal); C34.91 Malignant neoplasm of unspecified part of right bronchus or lung; I50.9 Heart failure, unspecified; J90 Pleural effusion, not elsewhere classified; Z79.51 Long term (current) use of inhaled steroids; Z79.899 Other long term (current) drug therapy; Z79.82 Long term (current) use of aspirin; Z20.822 Contact with and (suspected) exposure to COVID-19
CPT/HCPCS: 36415; 71045; 74177; 80053; 83690; 83880; 85025; 94640; 99217; 99220; 99285; A9270-GY; G0378; Q9967; U0002

== ENCOUNTER 2021-12-22 17:48 | Emergency (ER) | payer OTHER ==
[2021-12-22] MEDS ORDERED: Sodium Chloride 0.9% 10 ML Syringe FLUSH PRN (17:55)
[2021-12-22] MEDS ORDERED: Furosemide 40 MG/4 ML VIAL IVPUSH ONE (18:18)
[2021-12-22 18:52] LABS: ANION GAP 18.1 mmol/L (5-15); CHLORIDE,CL 97 mmol/L (98-107); SODIUM,NA 132 mmol/L (136-145)
[2021-12-22 18:58] LABS: ESTIMATED GFR 34 mL/min (>=60)
[2021-12-23] MEDS ORDERED: Iopamidol 755 Mg/ML 75 ML Bottle IVPUSH ONE (07:58)
[2021-12-23] MEDS ORDERED: Sodium Chloride 0.9% 50 ML IV SCH (08:00)
== END 2021-12-22 19:17 | disposition expired ==
LOC: KA.ED 17:48
DX: J90 Pleural effusion, not elsewhere classified (principal); I12.9 Hypertensive chronic kidney disease with stage 1 through stage 4 chronic kidney disease, or unspecified chronic kidney disease; N18.30 Chronic kidney disease, stage 3 unspecified; R79.82 Elevated C-reactive protein (CRP); R74.8 Abnormal levels of other serum enzymes; E87.2 Acidosis; I48.91 Unspecified atrial fibrillation; R79.89 Other specified abnormal findings of blood chemistry; D72.829 Elevated white blood cell count, unspecified; J44.9 Chronic obstructive pulmonary disease, unspecified; E78.00 Pure hypercholesterolemia, unspecified; E87.5 Hyperkalemia; E87.8 Other disorders of electrolyte and fluid balance, not elsewhere classified; N40.0 Benign prostatic hyperplasia without lower urinary tract symptoms; Z79.899 Other long term (current) drug therapy; Z79.82 Long term (current) use of aspirin
CPT/HCPCS: 36415; 71045; 71250; 74177; 80053; 82150; 83605; 83690; 83880; 84484; 85025; 86140; 87040; 93005; 93010; 96374; 99285; 99285-25; J1940; Q9967